=== PATIENT | female | born 1950 | race Caucasian/White ===

== ENCOUNTER 2018-06-28 10:12 | Outpatient (REF) | payer MEDICARE, SELFPAY ==
[2018-06-28 13:14] LABS: TSH 0.34 uIU/mL (0.358-3.74)
== END 2018-06-28 10:32 ==
LOC: NCHCN 10:12
PROVIDERS: PCP Internal Medicine; Visit Provider Internal Medicine
DX: E03.9 Hypothyroidism, unspecified (principal)
CPT/HCPCS: 84443